=== PATIENT | male | born 1990 | race Two or more races ===

== ENCOUNTER 2025-02-04 06:45 | Day surgery (SDC) | payer OTHER ==
[2025-01-31 09:27] VITALS: BP 133/83
[2025-01-31 09:38] LABS: BASO % 0.7 % (0.1-1.2); EOS # 0.09 (0.04-0.54); EOS % 1.3 % (0.7-7.0); HEMATOCRIT 45.3 % (40.1-51.0); HEMOGLOBIN 14.9 g/dL (13.7-17.5); LYMPH # 2.04 (1.18-3.74); LYMPH % 28.3 % (19.3-53.1); MEAN CORPUSCULAR HEMOGLOBIN 26.8 pg (25.6-32.2); MONO # 0.49 (0.24-0.82); MONO % 6.8 % (4.7-12.5); NEUT # 4.49 (1.56-6.13); NEUT % 62.3 % (34.0-71.1); PLATELET COUNT 268 K/uL (163-369); RED BLOOD COUNT 5.55 M/uL (4.63-6.08); RED CELL DISTRIBUTION WIDTH 13.1 % (11.6-14.4)
[2025-01-31 09:46] LABS: PH,URINE 6.5 (5.0-8.0); URINE APPEARANCE Clear; URINE BILIRRUBIN Negative (NEGATIVE); URINE BLOOD Negative; URINE COLOR Yellow; URINE GLUCOSE Negative (NEGATIVE); URINE KETONE Negative (NEGATIVE); URINE LEUKOCYTE Negative; URINE NITRATE Negative; URINE PROTEIN Negative (NEGATIVE); URINE UROBILINOGEN 0.2 E.U./dl
[2025-01-31 09:48] LABS: URINE BACTERIA 50.1 uL (0.0-1933); URINE EPITHELIAL CELLS 6.7 uL (0.0-38.8); URINE RBC 2.9 uL (0.0-20.8); URINE WBC 6.9 uL (0.0-23.2)
[2025-01-31 10:21] LABS: INR 1.02; PARTIAL THROMBOPLASTIN TIME 27.5 SECONDS (22.0-34.0); PROTHROMBIN TIME 11.1 SECONDS (9.0-11.5)
[2025-01-31 10:28] LABS: CALCIUM 9.2 mg/dL (8.5-10.1); CREATININE SERUM 0.94 mg/dL (0.70-1.30); PHOSPHOROUS 2.6 mg/dL (2.5-4.9); POTASSIUM 4.23 mEq/L (3.5-5.1)
[2025-02-04] MEDS ORDERED: CEFAZOLIN SODIUM 1,000 MG VIAL ONE (08:35)
[2025-02-04] MEDS ORDERED: EPINEPHRINE HCL/PF 1 MG/ML AMPUL ONE (10:36)
[2025-02-04] MEDS ORDERED: POVIDONE-IODINE 118 ML BOTT TOP ONE (10:46)
[2025-02-04] MEDS ORDERED: CIPROFLOXACIN HCL 0.175 MG/DR DROPS OP ONE (11:45)
[2025-02-04] MEDS ORDERED: CEPHALEXIN500 MG PO (13:44)
[2025-02-04] MEDS ORDERED: CIPROFLOXACIN2.5 ML OTIC (13:45)
[2025-02-04] MEDS ORDERED: MORPHINE SULFATE 4 MG/ML VIAL IV ONE (15:35)
[2025-02-04] MEDS ORDERED: ENALAPRILAT DIHYDRATE 1.25 MG/ML VIAL IV ONE (17:24)
== END 2025-02-04 18:30 | disposition home or self-care (01) ==
LOC: CIR.AMB 06:45
PROVIDERS: ATTEND Otolaryngology Otology & Neurotology
DX: H90.12 Conductive hearing loss, unilateral, left ear, with unrestricted hearing on the contralateral side (principal); H72.12 Attic perforation of tympanic membrane, left ear; H71.22 Cholesteatoma of mastoid, left ear